=== PATIENT | male | born 1935 | race Caucasian/White ===

== ENCOUNTER 2017-02-23 11:17 | Emergency (ER) | payer OTHER ==
[~2017-02-23] VITALS: Ht 188 cm; Wt 100.0 kg
[2017-02-23] MEDS ORDERED: FENTANYL CITRATE INJ 50 MCG/1 ML 2 ML VIAL IV STA (11:21)
[2017-02-23 11:24] VITALS: TEMP 36.5; Ht 188 cm; Wt 100.0 kg
--- NOTE | 2017-02-23 11:44 | DIAGNOSTIC IMAGING REPORT ---
LEFT SHOULDER 3 VIEWS CLINICAL HISTORY: Left shoulder dislocation. Fall. FINDINGS: 3 portable views of the left shoulder are obtained. No prior studies are available for comparison at the time of dictation. The skeletal structures are osteopenic. There is anterior shoulder dislocation. No fracture is seen. Productive degenerative change is identified at the acromioclavicular articulation. Mild overlying soft tissue edema is suggested. The visualized left lung parenchyma appears clear. IMPRESSION: Findings are consistent with anterior shoulder dislocation. No fracture is identified. Electronically signed by: Ronny Rodriguez M.D. 02/23/2017 11:43 AM Dictated Date/Time: 02/23/2017 11:42 AM
[2017-02-23] MEDS ORDERED: MISCTAB26 PO (12:09)
[2017-02-23] MEDS ORDERED: SIMV20TA2 PO (12:09)
[2017-02-23] MEDS ORDERED: CALCCAP7 PO (12:09)
[2017-02-23] MEDS ORDERED: ASPI81TA28 PO (12:09)
[2017-02-23] MEDS ORDERED: MULT-506 PO (12:09)
[2017-02-23] MEDS ORDERED: ASCO500T16 PO (12:09)
[2017-02-23 12:11] LABS: BASO % 0.5 %; BASO ABS # 0.04 K/uL (0-0.2); COMPLETE YES; EOS % 1.7 %; HEMATOCRIT 43.3 % (42-52); IG% 0.1 %; LYMPH % 34.7 %; LYMPH ABS # 2.84 K/uL (1.2-3.4); MEAN CELL VOLUME 93.5 fL (80-100); MEAN CORPUSCULAR HEMOGLOBIN 32.8 pg (25-34); MEAN CORPUSCULAR HGB CONC 35.1 g/dl (32-36); MEAN PLATELET VOLUME 9.5 fL (7.4-10.4); MONO % 12.8 %; NEUT % 50.2 %; PLATELET COUNT 270 K/uL (130-400); RED BLOOD COUNT 4.63 M/uL (4.7-6.1); WHITE BLOOD COUNT 8.19 K/uL (4.8-10.8)
--- NOTE | 2017-02-23 12:12 | DIAGNOSTIC IMAGING REPORT ---
CHEST ONE VIEW PORTABLE CLINICAL HISTORY: 81 years-old Male presenting with eval for ptx, post reduction of left shoulder. TECHNIQUE: Portable upright AP view of the chest was obtained. COMPARISON: None. FINDINGS: Cardiomediastinal silhouette normal. Lungs and pleural spaces clear. Multiple old left rib fractures. Upper abdomen normal. IMPRESSION: 1. No acute cardiopulmonary disease. No pneumothorax. Electronically signed by: Venkat Steward M.D. 02/23/2017 12:10 PM Dictated Date/Time: 02/23/2017 12:10 PM
[2017-02-23 12:21] LABS: BUN/CREATININE RATIO 16.3 (10-20); CALCIUM 8.9 mg/dl (8.5-10.1); CREATININE 1.1 mg/dl (0.60-1.40); POTASSIUM 3.9 mmol/L (3.5-5.1)
[2017-02-23 12:29] VITALS: O2SAT 93
--- NOTE | 2017-02-23 12:31 | DIAGNOSTIC IMAGING REPORT ---
LEFT SHOULDER 2 VIEWS CLINICAL HISTORY: Postreduction examination. FINDINGS: 2 portable views of left shoulder are compared to study performed earlier the same day 02/23/2017. The skeletal structures are osteopenic. There is been successful reduction of the dislocated left shoulder with rastafarian of near-anatomic alignment at the glenohumeral articulation. Productive degenerative changes seen at the acromial clavicular joint. There is loss of the subacromial space with superior subluxation of the left humeral head suggesting rotator cuff injury. Lucency in the humeral head may represent a Hill-Sachs fracture. There is irregularity along the inferior aspect of the glenoid. Mild overlying soft tissue edema is noted. The visualized left upper lobe lung parenchyma appears clear. There are healed left-sided rib fractures. IMPRESSION: 1. There has been successful reduction of the dislocated left shoulder is compared to previous. 2. A lucency in the humeral head likely represents a Hill-Sachs fracture. 3. Irregularity along the inferior glenoid may also represent a small avulsion fracture. 4. Loss of the subacromial space is likely related to rotator cuff injury. Electronically signed by: Ronny Rodriguez M.D. 02/23/2017 12:29 PM Dictated Date/Time: 02/23/2017 12:20 PM
[2017-02-23] MEDS ORDERED: OPTIRAY 320 IV PRN (12:45)
[2017-02-23] MEDS ORDERED: IBUPROFEN 600 MG TAB ONE (13:29)
[2017-02-23] MEDS ORDERED: NURSING VERBAL MED ORDER ONE (13:30)
--- NOTE | 2017-02-23 13:45 | DIAGNOSTIC IMAGING REPORT ---
L ANGIOGRAPHY UPPER EXT COMBO CLINICAL HISTORY: 81 years-old Male presenting with shoulder dislocation with loss of distal pulses, concern for vascular injury. TECHNIQUE: Multidetector CT angiography of the left upper extremity was performed after the administration of intravenous contrast. 3-D volumetric and/or maximum intensity projection (MIP) images were subsequently reconstructed for review. IV contrast: 119 L of Optiray 320. A dose lowering technique was used consistent with the principles of ALARA (as low as reasonably achievable). Stenosis measurements were based on NASCET-like criteria. COMPARISON: None. CT DOSE (mGy.cm): The estimated cumulative dose is 1492.65 mGy.cm. FINDINGS: [employer] topogram: Unremarkable. Vasculature: The left subclavian artery, left axillary artery, left brachial artery, and left radial and ulnar arteries are patent throughout the visualized course to the level of the forearm. No evidence of dissection or focal vessel occlusion to suggest vascular injury. Remaining upper extremity: Perivascular stranding along the left axilla represents posttraumatic hematoma extension from the comminuted fracture of the left humeral head, which results in a major fracture fragment comprised of the lesser and greater tubercles. There is 21 mm of lateral displacement of the distal fracture fragment. The fracture plane does not appear to extend into the articular surface. No residual subluxation. The osseous glenoid is intact. Visualized portion of the left lung demonstrates dependent atelectasis. IMPRESSION: 1. No evidence of vascular injury or dissection. Patent left upper extremity arteries the level of the forearm. 2. Mildly comminuted and displaced fracture of the left humeral head prominent fracture fragment comprised of the greater and lesser tubercles. Electronically signed by: Venkat Steward M.D. 02/23/2017 1:43 PM Dictated Date/Time: 02/23/2017 1:37 PM
[2017-02-23] MEDS ORDERED: OXYCODONE IR HOME PACK PO ONE (14:15)
[2017-02-23 14:26] VITALS: BP 129/76; PULSE 90; O2SAT 93
--- NOTE | 2017-02-23 17:39 | EMERGENCY ROOM VISIT NOTE ---
History Report prepared by Sonja: Selene Juan Under the Supervision of: Dr. Rafael Ojeda M.D. First contact with patient: 11:17 Chief Complaint: SHOULDER DISLOCATION Stated Complaint: FALL/SHOULDER PAIN History of Present Illness The patient is a 81 year old male who presents to the Emergency Room with complaints of an episode of a fall occurring about 1 hour [employer]POSITE [employer] WORK[employer]. The patient was [place] in [place]. He tripped and fell about 2-3 down into a [place]. He landed on his left arm and states that he heard an audible "snap." He is complaining of left shoulder pain that he rates as a 10/10 in severity. The patient states that his left arm is numb and he is unable to feel the left arm or move his left hand. He denies hitting his head. He denies any other injury. EMS was called and brought the patient to the ED via ambulance. EMS reports that the patient's left hand is cold to the touch and they have been unable to find a pulse in his left wrist. The patient denies neck pain, hip pain, and back pain. He has had nothing to eat or drink since 6am. Source of History: patient, EMS Onset: 1 hour [employer]ITE [employer] WORKER Position: shoulder (left) Symptom Intensity: 10/10 Timing: constant Modifying Factors (Worsening): other (recent fall) Associated Symptoms: + numbness (left hand), No neck pain, No back pain Review of Systems See HPI for pertinent positives & negatives. A total of 10 systems reviewed and were otherwise negative. Past Medical & Surgical Surgical Problems: (1) History of cataract surgery Family History Non-pertinent due to advanced age. Social History Marital Status: Housing Status: lives with significant other Current/Historical Medications Scheduled Ascorbic Acid (Ascorbic Acid), 500 MG PO DAILY Aspirin (Aspirin Ec), 81 MG PO DAILY Calcium Carbonate-Vitamin D (Calcium Plus Vitamin D), 2 CAP PO DAILY Misc Natural Products (Ginkgo Biloba), 1 TAB PO DAILY Multivitamin (Multivitamin), 1 TAB PO DAILY Simvastatin (Zocor), 20 MG PO QPM Allergies Coded Allergies: No Known Allergies (Unverified , 02/23/17) Physical Exam Vital Signs Date Time Temp Pulse Resp B/P (MAP) Pulse Ox O2 Delivery O2 Flow Rate FiO2 02/23/17 14:26 90 22 129/76 93 Room Air 02/23/17 13:50 97 02/23/17 13:19 100 18 124/79 94 Room Air 02/23/17 12:29 93 Nasal Cannula 2.0 02/23/17 12:28 85 Room Air 02/23/17 12:00 93 Room Air 02/23/17 11:51 92 18 135/85 98 02/23/17 11:24 36.5 94 18 140/70 95 Room Air 02/23/17 11:23 96 Physical Exam Constitutional: Vital signs reviewed. Head: Abrasion to the left lower jaw without bony tenderness. Eyes: Pupils are equal round reactive to light. Conjunctiva are noninjected. ENT: Pharynx is clear without erythema or exudate. Mucous membranes are moist. Neck supple without meningeal signs. Respiratory: Clear to auscultation bilaterally. Breath sounds are equal bilaterally. Cardiovascular: Regular rate and rhythm. No rubs or gallops. GI: Soft, nondistended and nontender. Bowel sounds are present. Musculoskeletal: No midline tenderness to cervical spine. He has an obvious deformity to the left upper arm consistent with anterior dislocation with no detectable pulses in the left hand, left hand is cold. No pelvic tenderness. No hip or lower extremity tenderness. Integumentary: No cyanosis. Neurological: The patient is awake and alert. No sensation or movement from the left wrist down, but he is able to move the left elbow and he has sensation of the upper arm. Psychiatric: Normal affect. Medical Decision & Procedures ER Provider Diagnostic Interpretation: Radiology results as stated below per my review and the radiologist's interpretation: LEFT SHOULDER 3 VIEWS CLINICAL HISTORY: Left shoulder dislocation. Fall. FINDINGS: 3 portable views of the left shoulder are obtained. No prior studies are available for comparison at the time of dictation. The skeletal structures are osteopenic. There is anterior shoulder dislocation. No fracture is seen. Productive degenerative change is identified at the acromioclavicular articulation. Mild overlying soft tissue edema is suggested. The visualized left lung parenchyma appears clear. IMPRESSION: Findings are consistent with anterior shoulder dislocation. No fracture is identified. Electronically signed by: Ronny Rodriguez M.D. 02/23/2017 11:43 AM Dictated Date/Time: 02/23/2017 11:42 AM LEFT SHOULDER 2 VIEWS CLINICAL HISTORY: Postreduction examination. FINDINGS: 2 portable views of left shoulder are compared to study performed earlier the same day 02/23/2017. The skeletal structures are osteopenic. There is been successful reduction of the dislocated left shoulder with religion of near-anatomic alignment at the glenohumeral articulation. Productive degenerative changes seen at the acromial clavicular joint. There is loss of the subacromial space with superior subluxation of the left humeral head suggesting rotator cuff injury. Lucency in the humeral head may represent a Hill-Sachs fracture. There is irregularity along the inferior aspect of the glenoid. Mild overlying soft tissue edema is noted. The visualized left upper lobe lung parenchyma appears clear. There are healed left-sided rib fractures. IMPRESSION: 1. There has been successful reduction of the dislocated left shoulder is compared to previous. 2. A lucency in the humeral head likely represents a Hill-Sachs fracture. 3. Irregularity along the inferior glenoid may also represent a small avulsion fracture. 4. Loss of the subacromial space is likely related to rotator cuff injury. Electronically signed by: Ronny Rodriguez M.D. 02/23/2017 12:29 PM Dictated Date/Time: 02/23/2017 12:20 PM CHEST ONE VIEW PORTABLE CLINICAL HISTORY: 81 years-old Male presenting with eval for ptx, post reduction of left shoulder. TECHNIQUE: Portable upright AP view of the chest was obtained. COMPARISON: None. FINDINGS: Cardiomediastinal silhouette normal. Lungs and pleural spaces clear. Multiple old left rib fractures. Upper abdomen normal. IMPRESSION: 1. No acute cardiopulmonary disease. No pneumothorax. Electronically signed by: Venkat Steward M.D. 02/23/2017 12:10 PM Dictated Date/Time: 02/23/2017 12:10 PM L ANGIOGRAPHY UPPER EXT COMBO CLINICAL HISTORY: 81 years-old Male presenting with shoulder dislocation with loss of distal pulses, concern for vascular injury. TECHNIQUE: Multidetector CT angiography of the left upper extremity was performed after the administration of intravenous contrast. 3-D volumetric and/or maximum intensity projection (MIP) images were subsequently reconstructed for review. IV contrast: 119 L of Optiray 320. A dose lowering technique was used consistent with the principles of ALARA (as low as reasonably achievable). Stenosis measurements were based on NASCET-like criteria. COMPARISON: None. CT DOSE (mGy.cm): The estimated cumulative dose is 1492.65 mGy.cm. FINDINGS: [employer] Work[employer] topogram: Unremarkable. Vasculature: The left subclavian artery, left axillary artery, left brachial artery, and left radial and ulnar arteries are patent throughout the visualized course to the level of the forearm. No evidence of dissection or focal vessel occlusion to suggest vascular injury. Remaining upper extremity: Perivascular stranding along the left axilla represents posttraumatic hematoma extension from the comminuted fracture of the left humeral head, which results in a major fracture fragment comprised of the lesser and greater tubercles. There is 21 mm of lateral displacement of the distal fracture fragment. The fracture plane does not appear to extend into the articular surface. No residual subluxation. The osseous glenoid is intact. Visualized portion of the left lung demonstrates dependent atelectasis. IMPRESSION: 1. No evidence of vascular injury or dissection. Patent left upper extremity arteries the level of the forearm. 2. Mildly comminuted and displaced fracture of the left humeral head prominent fracture fragment comprised of the greater and lesser tubercles. Electronically signed by: Venkat Steward M.D. 02/23/2017 1:43 PM Dictated Date/Time: 02/23/2017 1:37 PM Laboratory Results 02/23/17 11:25 Red Blood Count 4.63, Mean Corpuscular Volume 93.5, Mean Corpuscular Hemoglobin 32.8, Mean Corpuscular Hemoglobin Concent 35.1, Mean Platelet Volume 9.5, Neutrophils (%) (Auto) 50.2, Lymphocytes (%) (Auto) 34.7, Monocytes (%) (Auto) 12.8, Eosinophils (%) (Auto) 1.7, Basophils (%) (Auto) 0.5, Neutrophils # (Auto ) 4.11, Lymphocytes # (Auto) 2.84, Monocytes # (Auto) 1.05, Eosinophils # (Auto ) 0.14, Basophils # (Auto) 0.04 02/23/17 11:25 Test 02/23/17 11:25 White Blood Count 8.19 K/uL (4.8-10.8) Red Blood Count 4.63 M/uL (4.7-6.1) Hemoglobin 15.2 g/dL (14.0-18.0) Hematocrit 43.3 % (42-52) Mean Corpuscular Volume 93.5 fL (80-100) Mean Corpuscular Hemoglobin 32.8 pg (25-34) Mean Corpuscular Hemoglobin Concent 35.1 g/dl (32-36) Platelet Count 270 K/uL (130-400) Mean Platelet Volume 9.5 fL (7.4-10.4) Neutrophils (%) (Auto) 50.2 % Lymphocytes (%) (Auto) 34.7 % Monocytes (%) (Auto) 12.8 % Eosinophils (%) (Auto) 1.7 % Basophils (%) (Auto) 0.5 % Neutrophils # (Auto) 4.11 K/uL (1.4-6.5) Lymphocytes # (Auto) 2.84 K/uL (1.2-3.4) Monocytes # (Auto) 1.05 K/uL (0.11-0.59) Eosinophils # (Auto) 0.14 K/uL (0-0.5) Basophils # (Auto) 0.04 K/uL (0-0.2) RDW Standard Deviation 47.7 fL (36.4-46.3) RDW Coefficient of Variation 14.0 % (11.5-14.5) Immature Granulocyte % (Auto) 0.1 % Immature Granulocyte # (Auto) 0.01 K/uL (0.00-0.02) Prothrombin Time 11.0 SECONDS (9.0-12.0) Prothromb Time International Ratio 1.0 (0.9-1.1) Activated Partial Thromboplast Time 25.2 SECONDS (21.0-31.0) Partial Thromboplastin Ratio 1.0 Anion Gap 14.0 mmol/L (3-11) Est Creatinine Clear Calc Drug Dose 68.8 ml/min Estimated GFR () 73.6 Estimated GFR (Non- 63.5 BUN/Creatinine Ratio 16.3 (10-20) Calcium Level 8.9 mg/dl (8.5-10.1) Laboratory results as reviewed by me. Medications Administered Medications (Trade) Dose Ordered Sig/Cuong Route Start Time Stop Time Status Last Admin Dose Admin Fentanyl Citrate (Fentanyl Inj) 100 mcg NOW STAT IV 02/23/17 11:21 02/23/17 11:23 DC 02/23/17 11:30 100 MCG Miscellaneous Information (Nursing Verbal Med Order) 1 ea ONE ONCE N/A 02/23/17 13:30 02/23/17 13:31 DC 02/23/17 13:32 1 EA Ibuprofen (Motrin Tab) 600 mg STK-MED ONCE .ROUTE 02/23/17 13:29 02/23/17 13:30 DC 02/23/17 13:32 600 MG Oxycodone HCl (Roxicodone Immediate Rel 5MG Home Pack) 1 homepack UD ONCE PO 02/23/17 14:15 02/23/17 14:16 DC 02/23/17 14:26 1 HOMEPACK Procedure Anterior Shoulder Dislocation Reduction Indication: Left shoulder dislocation Verbal consent obtained. Risks and benefits were explained with the usual customary discussion. A time out was taken. Neurovascular examination before the procedure revealed no detectable pulses in the left wrist, cold left hand, inability to move or feel the left hand. Initially we had the patient sitting upright pulling the left arm forward with scapular manipulation achieved partial reduction with immediate arterial flow but still anatomic defect at the shoulder. He was then place prone and complete reduction was achieved applying gentle downward inline traction on the humerus, while scapula manipulation was applied. This resulted in an easy reduction without complication. Neurovascular examination after the procedure revealed good pulses, dysesthesia to the 4th and 5th digits with difficulty with opposition. The patient had significant pain relief and tolerated the procedure well. ED Course 1117: The patient was evaluated in room B1. A complete history and physical exam was performed. 1121: Fentanyl 100 mcg IV 1135: At this time I began to reduce the patient's left shoulder. Please see the procedure note above for further details. 1146: The patient is feeling better post-reduction and we are waiting on post- reduction x-rays. 1151: Post reduction x-ray shows realignment. His pulses are strong and bounding. He still has some dysesthesia to the 4th and 5th digits of the right hand with some difficulty of opposition to the thumb with the 4th and 5th digits. 1214: The patient was moved to room B12B post-reduction. I updated him at this time and he is still complaining of numbness and difficulty moving his 4th and 5th digits on the left hand. 1219: I spoke with Dr. Osorio of orthopedics. We discussed the patient's case and he recommended a CT angiogram. If that is normal the patient can be discharged with a sling. 1234: Upon reevaluation the patient is resting comfortably. I updated him on the plan for an angiogram. He verbalized agreement. 1323: The patient is requesting something mild for pain. 1329: Ibuprofen 600 mg PO 1406: I reassessed the patient at this time. He is feeling better and resting comfortably. He is still having trouble with his fingers. I discussed the results and treatment plan with the patient. I answered all pertaining questions that he had. He expressed understanding and verbalized agreement. The patient will be discharged home. He will follow-up with an orthopedist in his home town. 1415: Oxycodone HCl 1 homepack PO Medical Decision This is a 81-year-old male who presents with an injury to his left arm with neurovascular compromise. Differential diagnosis includes humeral fracture, shoulder dislocation, Hill-Sachs deformity, neuropraxia, arterial dissection. I did perform a limited focused review of portions of the patient's old chart on the electronic medical record. The patient has had no prior visits to this hospital. I did evaluate the patient immediately upon arrival as noted above. He has an obvious deformity to his left arm consistent with anterior dislocation. He does have neurovascular compromise with no palpable pulses and a cold left hand. He is unable to move his left wrist or hand at all or feel his left hand or wrist. IV access was established. I did order and personally review the patient's left shoulder x-ray as described above. He has an obvious dislocation with no fracture noted. I did treat patient with fentanyl 100 g IV. I did perform shoulder reduction as noted above. He immediately regained pulses and was able to move and feel his left hand. Postreduction films were obtained as well as a chest x-ray which showed good anatomic alignment. I did order and review the patient's blood work as noted in the electronic medical record. I did discuss case with Dr. Osorio of orthopedics. He agreed that the patient needed some vascular imaging studies and if those are negative he can follow up with orthopedics as an outpatient. I did order a CT angiogram of the left upper extremity. I did review the images myself as well as the radiology report as described above. There is no evidence of vascular injury. He does have a humeral head fracture. The patient was placed in a sling. He is informed of his test results. He was given Motrin for pain here and discharged with a OxyIR home pack. He did not wish to have a prescription for pain meds. He will follow up with a local orthopedic physician in his home town. He was given return instructions as outlined below as well as a disc containing his imaging studies. Medication Reconcilliation Current Medication List: was personally reviewed by me Blood Pressure Screening Patient's blood pressure: Elevated blood pressure Blood pressure disposition: Elevated BP felt to be situational Consults Time Called: 1215 Consulting Physician: Dr. Osorio Returned Call: [address] sOorio of orthopedics. We discussed the patient's case and he recommended a CT angiogram. If that is normal the patient can be discharged with a sling. Impression Primary Impression: Dislocation of left shoulder joint Additional Impressions: Humeral head fracture Neuropraxia of left upper extremity Critical Care I have personally spent 32 minutes of critical care time in the direct management of this patient. This includes bedside care, interpretation of diagnostic studies, and testing, discussion with consultants, patient, and family members, and other required patient management activities. This 32 minutes is in excess of all separately billable procedures. Scribe Attestation The scribe's documentation has been prepared under my direct and personally reviewed by me in its entirety. I confirm that the note above accurately reflects all work, treatment, procedures, and medical decision making performed by me. Departure Information Dispostion Home / Self-Care Referrals No Doctor, Assigned (PCP) Forms HOME CARE DOCUMENTATION FORM, IMPORTANT VISIT INFORMATION, WORK / SCHOOL INSTRUCTIONS Patient Instructions ED Dislocation Shoulder Redu, ED Fx Upper Ext, My [facility] Additional Instructions You have been examined and treated today on an emergency basis only. This is not a substitute for, or an effort to provide, complete comprehensive medical care. It is impossible to recognize and treat all injuries or illnesses in a single emergency department visit. It is therefore important that you follow up closely with an orthopedic physician in your hometown. Call as soon as possible for an appointment. Return for worsening symptoms or if you develop fever, chest pain, shortness of breath, worsening numbness or weakness to your right hand, significant change in color or temperature of your left hand, or any other concerning symptoms. Problem Qualifiers Primary Impression: Dislocation of left shoulder joint Encounter type: initial encounter Qualified Codes: S43.005A - Unspecified dislocation of left shoulder joint, initial encounter Additional Impressions: Humeral head fracture Encounter type: initial encounter Fracture type: closed Laterality: left Qualified Codes: S42.292A - Other displaced fracture of upper end of left humerus, initial encounter for closed fracture Neuropraxia of left upper extremity Encounter type: initial encounter Qualified Codes: S44.92XA - Injury of unspecified nerve at shoulder and upper arm level, left arm, initial encounter
== END 2017-02-23 14:37 | disposition home or self-care (01) ==
LOC: EDBD 11:17 → C.EDB 11:20
DX: S43.005A Unspecified dislocation of left shoulder joint, initial encounter (principal); S42.292A Other displaced fracture of upper end of left humerus, initial encounter for closed fracture; S44.92XA Injury of unspecified nerve at shoulder and upper arm level, left arm, initial encounter; S00.81XA Abrasion of other part of head, initial encounter; W17.89XA Other fall from one level to another, initial encounter; W22.8XXA Striking against or struck by other objects, initial encounter; Z98.49 Cataract extraction status, unspecified eye; Z79.82 Long term (current) use of aspirin